=== PATIENT | male | born 1990 | race Hispanic/Latino ===

== ENCOUNTER 2024-01-07 17:04 | Emergency (ER) | payer SELFPAY | END 2024-01-07 17:40 | disposition left against medical advice (07) | LOC: NAV ERS 17:04 | DX: I10 Essential (primary) hypertension (principal); E86.0 Dehydration; F17.210 Nicotine dependence, cigarettes, uncomplicated; Z79.899 Other long term (current) drug therapy | CPT/HCPCS: 99282 ==

== ENCOUNTER 2024-01-22 17:41 | Emergency (ER) | payer SELFPAY ==
[2024-01-22] MEDS ORDERED: Ketorolac Tromethamine 30 MG (1 mL) VIAL ONE (18:00)
[2024-01-22] MEDS ORDERED: Sodium Chloride 0.9% 1,000 ML ONE (18:00)
== END 2024-01-22 18:55 | disposition home or self-care (01) ==
LOC: NAV ERS 17:41
DX: R51.9 Headache, unspecified (principal); F17.210 Nicotine dependence, cigarettes, uncomplicated; I10 Essential (primary) hypertension
CPT/HCPCS: 99283; J1885; J7050

== ENCOUNTER 2024-02-23 09:07 | Emergency (ER) | payer OTHER | END 2024-02-23 09:50 | disposition home or self-care (01) | LOC: NAV ERS 09:07 | DX: I10 Essential (primary) hypertension (principal); F17.210 Nicotine dependence, cigarettes, uncomplicated | CPT/HCPCS: 99283 ==

== ENCOUNTER 2024-02-24 10:04 | Emergency (ER) | payer OTHER ==
[2024-02-24] MEDS ORDERED: Sodium Chloride 0.9% 1,000 ML ONE (10:27)
[2024-02-24 10:39] LABS: #Basophils 0.1 thou/uL (0.0-0.2); #Eosinphils 0.2 thou/uL (0.0-0.7); #Lymphocytes 2.3 thou/uL (1.20-3.40); #Monocytes 0.8 thou/uL (0.11-0.59); #Neutrophils 6.4 thou/uL (1.40-6.50); %Basophils 0.9 % (0.0-1.0); %Lymphocytes 23.4 % (21.0-51.0); %Monocytes 8.5 % (0.0-10.0); %Neutrophils 65.3 % (42.0-75.0); Hemoglobin 13.2 g/dL (14.0-18.0); Mean Corpuscular HGB CONC 32.3 g/dL (32.0-36.0); Mean Corpuscular Hemoglobin 27.6 pg (27.0-31.0); Mean Corpuscular Volume 85.7 fl (78.0-98.0); Mean Platelet Volume 7.2 fL (7.4-10.4); Platelet Count 230 10x3/uL (130-400); RBC Distribution Width 12.5 % (11.5-14.5); Red Blood Cell (RBC) Count 4.78 mill/uL (4.70-6.10); White Blood Cell (WBC) Count 9.8 10x3/uL (4.8-10.8)
[2024-02-24 10:51] LABS: ALT (SGPT) 24 U/L (8-55); AST (SGOT) 22 U/L (5-34); Albumin 4.1 g/dL (3.5-5.0); Alkaline Phosphatase 57 U/L (40-110); Anion Gap 15 mmol/L (10-20); BUN (Urea Nitrogen) 17 mg/dL (8.9-20.6); CK (CPK) 617 U/L (30-200); Calc. Creatinine Clearance 0 mL/min (70-130); Calcium 9.4 mg/dL (7.8-10.44); Carbon Dioxide 23 mmol/L (22-29); Chloride 106 mmol/L (98-107); Estimated GFR 101; Globulin 2.7 g/dL (2.4-3.5); Glucose 138 mg/dL (70-105); Potassium 3.6 mmol/L (3.5-5.1); Protein, Total 6.8 g/dL (6.0-8.3); Sodium 140 mmol/L (136-145)
[2024-02-24 10:54] LABS: Troponin I Less than 0.010 ng/mL (< 0.028)
== END 2024-02-24 11:29 | disposition home or self-care (01) ==
LOC: NAV ERS 10:04
DX: R07.2 Precordial pain (principal); E86.0 Dehydration; R74.8 Abnormal levels of other serum enzymes; I10 Essential (primary) hypertension; F17.210 Nicotine dependence, cigarettes, uncomplicated
CPT/HCPCS: 71045; 80053; 82550; 83605; 84484; 85025; 93005; 96360